=== PATIENT | male | born 1980 | race Caucasian/White ===

== ENCOUNTER 2022-05-10 20:32 | Emergency (ER) | payer SELFPAY ==
[~2022-05-10] VITALS: Ht 188 cm; Wt 161.4 kg
[~2022-05-10 20:32] MED LIST: NO HOME MEDICATIONS
[2022-05-10 20:57] VITALS: TEMP 98
[2022-05-10 22:32] VITALS: BP 119/79; PULSE 78
== END 2022-05-10 22:32 | disposition home or self-care (01) ==
LOC: COL.ER 20:32
DX: S60.051A Contusion of right little finger without damage to nail, initial encounter (principal); W01.198A Fall on same level from slipping, tripping and stumbling with subsequent striking against other object, initial encounter; Y92.59 Other trade areas as the place of occurrence of the external cause; Y99.0 Civilian activity done for income or pay